=== PATIENT | male | born 2000 | race Caucasian/White ===

== ENCOUNTER 2023-07-18 14:26 | Emergency (ER) | payer MEDICAID, OTHER, SELFPAY ==
[2023-07-18] MEDS ORDERED: Ketorolac Tromethamine 30 MG (1 mL) VIAL ONE (14:54)
== END 2023-07-18 15:42 | disposition home or self-care (01) ==
LOC: ERS 14:26
DX: K04.7 Periapical abscess without sinus (principal); K02.9 Dental caries, unspecified
CPT/HCPCS: 96372; 99283; J1885